=== PATIENT | male | born 1950 | race Native Hawaiian/Other Pacific Islander ===

== ENCOUNTER 2019-05-20 12:16 | Emergency (ER) | payer BC ==
[~2019-05-20] VITALS: Ht 172.7 cm; Wt 90.7 kg
[2019-05-20 12:24] VITALS: TEMP 98.2
[2019-05-20] MEDS ORDERED: PRINIVIL10 MG PO (12:41)
[2019-05-20] MEDS ORDERED: ASA LOW DOSE81 MG PO (12:42)
[2019-05-20 13:04] LABS: PLATELET COUNT 170 K/uL (142-355)
[2019-05-20 15:13] LABS: PARTIAL THROMBOPLASTIN TIME 24.5 SECONDS (24.5-33.6)
[2019-05-20 16:00] VITALS: BP 135/89
== END 2019-05-20 16:00 | disposition home or self-care (01) ==
LOC: ED 12:16
PROVIDERS: Emergency Medicine
DX: R00.1 Bradycardia, unspecified (principal); I10 Essential (primary) hypertension
CPT/HCPCS: 80053; 81000; 82550; 84484; 85027; 85610; 85730; 93005; 99284

== ENCOUNTER 2020-12-14 09:37 | Outpatient (CLI) | payer BC ==
[~2020-12-14 09:37] MED LIST: ASA LOW DOSE81 MG PO; PRINIVIL10 MG PO
[2020-12-14 10:28] LABS: PLATELET COUNT 184 K/uL (142-355)
[2020-12-14 10:48] LABS: POTASSIUM 3.9 mmol/L (3.6-5.2)
== END 2020-12-14 20:49 | disposition home or self-care (01) ==
LOC: LABW 09:37
PROVIDERS: ATTEND Internal Medicine
DX: M54.5 Low back pain (principal); I10 Essential (primary) hypertension; K59.00 Constipation, unspecified
CPT/HCPCS: 36415; 80053; 80061; 81000; 84439; 84443; 85027

== ENCOUNTER 2020-12-21 08:23 | Outpatient (CLI) | payer BC | END 2020-12-21 23:00 | disposition home or self-care (01) | LOC: NM 08:23 | PROVIDERS: ATTEND Internal Medicine | DX: M89.8X8 Other specified disorders of bone, other site (principal) | CPT/HCPCS: A9561 ==